=== PATIENT | female | born 1940 | race Caucasian/White ===

== ENCOUNTER → 2020-06-23 00:11 | Outpatient (CLI) | payer MEDICARE, OTHER, SELFPAY ==
[2020-06-23 19:15] LABS: SARS-CoV-2 RNA PCR Negative
== END ==
PROVIDERS: PCP Family Medicine; Visit Provider Surgery
DX: Z01.812 Encounter for preprocedural laboratory examination (principal); Z20.822 Contact with and (suspected) exposure to COVID-19
CPT/HCPCS: C9803; U0003; U0005

== ENCOUNTER 2020-06-23 09:25 | Outpatient (CLI) | payer MEDICARE, OTHER, SELFPAY ==
[2020-06-23 10:06] LABS: Alanine Aminotransferase 24 U/L (4-35); Albumin Level 4.8 g/dL (3.5-5.1); Alkaline Phosphatase 62 U/L (38-126); Amylase 85 U/L (30-110); Aspartate Amino Transferase 32 U/L (14-36); Bilirubin,Total 0.6 mg/dL (0.2-1.3); Lipase 126 U/L (23-300)
--- NOTE | 2020-06-23 10:30 | ECG_ITS ---
Measurements Intervals [place] Rate: 62 P: 64 [place]: 187 QRS: 31 QRSD: 97 T: 58 QT: 413 QTc: 421 Interpretive Statements SINUS RHYTHM INCOMPLETE RIGHT BUNDLE BRANCH BLOCK BASELINE ARTIFACT- I, II, III, AVR, AVL, AVF, V1-V2 BORDERLINE ECG Electronically Signed On 06-23-2020 10:31:30 CDT by Won Meza D.O.
== END 2020-06-23 09:26 | disposition home or self-care (01) ==
PROVIDERS: PCP Family Medicine; Visit Provider Surgery
DX: K80.10 Calculus of gallbladder with chronic cholecystitis without obstruction (principal); Z01.818 Encounter for other preprocedural examination; I10 Essential (primary) hypertension; I45.10 Unspecified right bundle-branch block
CPT/HCPCS: 36415; 80076; 82150; 83690; 86850; 86900; 86901; 93005; C9803; U0003; U0005

== ENCOUNTER 2020-06-26 01:36 | Day surgery (SDC) | payer MEDICARE, OTHER, SELFPAY ==
[2020-06-18 08:31] VITALS: BMI 29.8
--- NOTE | 2020-06-25 09:56 | P.PNAN_ITS ---
Anes - Initial Pre Proc Eval Procedure: Operation Date: 06/26/20 10:30 Proposed Procedures p Laparoscopic Cholecystectomy - Ozzie Friedman MD Date/Time: 06/25/20 09:56 Surgeon: Ozzie Friedman MD Pre Op Diagnosis: chronic cholecystitis with stones Patient Data Age: 80 Gender: F Height: 1.57 m Weight: 74 kg Allergies Allergy/AdvReac Type Severity Reaction Status Date / Time No Known Allergies Allergy Verified 06/26/20 10:03 Home Medications Medication Instructions Recorded Confirmed Type alendronate 70 mg tablet 70 mg PO WEEKLY 05/29/20 06/26/20 History amlodipine 5 mg-benazepril 10 mg 1 cap PO QAM 05/29/20 06/26/20 History capsule diphenhydramine HCl 25 mg capsule 25 mg PO QHS 05/29/20 06/26/20 History escitalopram oxalate 5 mg tablet 5 mg PO HS 05/29/20 06/26/20 History metoprolol tartrate 25 mg tablet 25 mg PO BID 05/29/20 06/26/20 History multivitamin 1 tablet PO DAILY 05/29/20 06/26/20 History omega-3 fatty acids 1,000 mg 1,000 mg PO DAILY 05/29/20 06/26/20 History capsule pantoprazole 40 mg tablet,delayed 40 mg PO QAM 05/29/20 06/26/20 History release rosuvastatin 10 mg tablet 10 mg PO DAILY 05/29/20 06/26/20 History acetaminophen 650 mg 650 mg PO Q8H PRN 06/03/20 06/26/20 History tablet,extended release Patient hx anesthesia problems: none Family hx anesthesia problems: none [facility] Past Medical History Medical History (Updated 06/25/20 @ 09:57 by Lyndon Mosley DO) Anxiety Depression GERD (gastroesophageal reflux disease) High cholesterol Hypertension, essential Surgical History Surgical History H/O tubal ligation 1977 History of appendectomy 1977- same time as tubal ligation Hx of bilateral cataract extraction Family History Family History Mother Hypertension Father Family history of coronary artery disease Other Heart disease Social History Social History (Updated 04/13/21 @ 09:55 by Triny Morales CMA) Smoking status: Never smoker Alcohol intake: never Substance use: unknown Living arrangements: alone Spiritual care concerns: No Anes - Eval Final PreProcedure Day of Procedure 06/25/20 09:56 Patient weight: overweight Heart: regular rate and rhythm Lungs: clear to auscultation and normal air movement Airway: Mallampati scale class II Neurological: alert and oriented Last oral intake: >/= 8 hours ASA classification: III Emergent: no Anesthetic plan: proceed Anesthesia type and monitoring: general ETT and standard monitoring Informed Consent: The patient's anesthetic plan and its attendant risks and benefits were discussed with the patient/family/POA. Questions were solicited and answers provided to the satisfaction of the patient/family/POA.
[2020-06-26] VITALS (7 sets, daily range): BP systolic 134–166; BP diastolic 51–73; PULSE 64–78; RESP 14–18; TEMP 36.6–36.7; O2SAT 99–100
--- NOTE | 2020-06-26 10:07 | SUR.PREOP ---
PATIENT INFORMED OF SURGERY TIME DELAY
[2020-06-26] MEDS: ACETAMINOPHEN 500 MG TABLET 1000 MG PO (10:10)
[2020-06-26] MEDS: LACTATED RINGERS 1,000 ML 30 ML IV CONT (10:20)
--- NOTE | 2020-06-26 10:24 | WPDHPUPDATE1 ---
History and Physical Update Update Date/Time: 06/26/20 10:24 History and Physical has been reviewed, including an updated exam of the patient. There are NO changes in the patient's condition. Risks, benefits, and alternatives have been discussed and questions answered. Patient agrees to proceed with procedure.
[2020-06-26] MEDS: KETOROLAC 15 MG/ML VIAL (*BKC) IV PUSH (10:28)
--- NOTE | 2020-06-26 11:37 | SUR.PREOP ---
SPOKE WITH PT AND DAUGHTER, UPDATED ON SURGERY TIME DELAY.
[2020-06-26] MEDS: ceFAZolin 2 GM/D5W 50 ML 2 GM/50 ML BAG IVPB (13:20)
[2020-06-26] MEDS: BUPIVACAINE/EPINEPHRINE 0.5% 30 ML VIAL INFILTRATE (13:46)
--- NOTE | 2020-06-26 14:29 | P.OP_ITS ---
Procedure Note - Detailed Date of procedure: 06/26/20 Pre-op diagnosis: chronic cholecystitis Chronic cholecystitis Post-op diagnosis: same Procedure performed: Laparoscopic cholecystectomy Description of procedure: The patient was taken to surgery and induced into general anesthesia. The abdomen was prepped and draped. Trocars were placed in the usual fashion using 0.5% Marcaine with epinephrine and applied Medical optical trocars. A 5 millimeter camera was used. The gallbladder was decompressed with a laparoscopic aspirator. The cholecystotomy was closed with a Vicryl endo-loop. The gallbladder was retracted anterosuperiorly. Adhesions to the gallbladder were taken down so that the cholecystohepatic triangle was exposed. Traction was placed on the infundibulum. The cystic duct and cystic artery were dissected out very clearly. The gallbladder was dissected off the liver at its lower 3rd. Critical view was achieved. We securely clipped and divided the cystic duct and cystic artery. The gallbladder was then further retracted so that the peritoneal attachments to the liver could be divided. Once the gallbladder was freed entirely, it was placed in an Endo-Catch bag and retrieved through the 10 11 epigastric trocar site. The epigastric trocar was then replaced. We reviewed the right upper quadrant. It was irrigated and suctioned. All looked good with no evidence of bleeding or bile leakage. The fascia at the epigastric trocar site was closed with 0 Vicryl suture using Paul colon and Paul suture pass device. Trocars were removed and CO2 was evacuated from the abdominal cavity. Skin wounds were closed with subcuticular 4 O Monocryl skin suture. The wounds were dressed with Exofin surgical adhesive. Patient was awakened and taken to recovery in good condition. Sponge and needle counts were correct x2. Anesthesia: GETA and local (0.5% Marcaine with epinephrine) Surgeon: Ozzie Friedman MD Bilingual Medical Assistant: Diana REGAN Estimated blood loss (mL): 5 Drains: No Packing: No Pathology: yes (Gallbladder) Complications: None Condition: stable Disposition: PACU Findings: Chronic inflammation, no gallstones noted. No biliary ductal dilatation, no liver abnormalities.
== END 2020-06-26 16:04 | disposition home or self-care (01) ==
PROVIDERS: PCP Family Medicine; Visit Provider Surgery
PROC: 0FT44ZZ Resection of Gallbladder, Percutaneous Endoscopic Approach (ICD-10-PCS; CPT 47562; principal; 2020-06-26 12:00)
DX: K80.10 Calculus of gallbladder with chronic cholecystitis without obstruction (principal); K21.9 Gastro-esophageal reflux disease without esophagitis; E78.00 Pure hypercholesterolemia, unspecified; I10 Essential (primary) hypertension; F41.8 Other specified anxiety disorders; R10.13 Epigastric pain; K76.0 Fatty (change of) liver, not elsewhere classified
CPT/HCPCS: 47562; 88304; A9270; C1713; J0330; J0690; J1100; J1885; J2405; J2704; J2710; J3010; J7120